=== PATIENT | male | born 1955 | race Caucasian/White ===

== ENCOUNTER → 2016-05-13 | Outpatient (CLI) | payer MEDICARE, MEDICAID ==
[~2016-05-13] MED LIST: CENTRUM COMPLE1 EACH PO; COLACE100 MG PO; CUBICIN500 MG IV; DOC-Q-LAX TABL1 EACH PO; FLEXERIL10 MG PO; HEPARIN 31 UNIT/1 M IV; IRON325 M1 PO; LEVAQUIN500 MG PO; LEVOTHYROXINE175 MCG PO; LIPITOR10 MG PO; MIACALCIN200 UNIT/1 SUBCUT; NAPROSYN500 MG PO; PERCOCET 7.5-31 EACH PO; PRILOSEC40 MG PO; PROBIOTIC ACID1 EAC3 PO; PROTONIX40 MG PO; SYNTHROID150 MCG PO; SYNTHROID25 MCG PO; TRUBIOTICS PO; ULTRAM50 MG PO
== END | disposition short-term general hospital (02) ==
LOC: CLSURG 08:17
DX: Z48.815 Encounter for surgical aftercare following surgery on the digestive system (principal)

== ENCOUNTER → 2016-05-20 | Outpatient (CLI) | payer MEDICARE, MEDICAID | END | disposition short-term general hospital (02) | LOC: CLSURG 08:28 | DX: Z48.817 Encounter for surgical aftercare following surgery on the skin and subcutaneous tissue (principal) ==

== ENCOUNTER → 2016-05-27 | Outpatient (CLI) | payer MEDICARE, MEDICAID | END | disposition short-term general hospital (02) | LOC: CLSURG 08:10 | DX: Z43.1 Encounter for attention to gastrostomy (principal) ==

== ENCOUNTER → 2016-06-03 | Outpatient (CLI) | payer MEDICARE, MEDICAID | END | disposition short-term general hospital (02) | LOC: CLSURG 08:12 | DX: Z43.4 Encounter for attention to other artificial openings of digestive tract (principal) ==

== ENCOUNTER → 2016-06-17 | Outpatient (CLI) | payer MEDICARE, MEDICAID | END | disposition short-term general hospital (02) | LOC: CLSURG 08:04 | DX: K94.29 Other complications of gastrostomy (principal) ==

== ENCOUNTER → 2016-07-01 | Outpatient (CLI) | payer MEDICARE, MEDICAID | END | disposition short-term general hospital (02) | LOC: CLSURG 08:07 | DX: Z43.1 Encounter for attention to gastrostomy (principal) ==